=== PATIENT | female | born 1955 | race Two or more races ===

== ENCOUNTER 2024-02-20 15:27 | Emergency (ER) | payer OTHER ==
[~2024-02-20] VITALS: Ht 170.2 cm; Wt 80.5 kg
[2024-02-20] MEDS ORDERED: ACET500T58 PO (16:53)
[2024-02-20 16:54] VITALS: BP 150/85; PULSE 88; RESP 16; TEMP 98.2; O2SAT 97
== END 2024-02-20 16:52 | disposition home or self-care (01) ==
LOC: ER 15:34
DX: S02.32XA Fracture of orbital floor, left side, initial encounter for closed fracture (principal); W18.31XA Fall on same level due to stepping on an object, initial encounter; Y93.89 Activity, other specified; Y92.89 Other specified places as the place of occurrence of the external cause; Y99.8 Other external cause status
CPT/HCPCS: 70450; 70486